=== PATIENT | female | born 1970 | race Asian ===

== ENCOUNTER → 2016-02-20 | Outpatient (CLI) | payer MEDICARE, OTHER ==
[2016-02-20 14:19] LABS: ALT 32 U/L (9-52); AST 23 U/L (14-36); Alkaline Phosphatase 112 U/L (38-126); Blood Urea Nitrogen 10 mg/dL (7-17); Non-African American GFR(MDRD) >60 (>60 ml/min/1.73 sqM)
== END | disposition home or self-care (01) ==
LOC: LABWHC1 13:07
PROVIDERS: ATTEND Pain Medicine Pain Medicine
DX: D64.9 Anemia, unspecified (principal); M06.9 Rheumatoid arthritis, unspecified; K71.6 Toxic liver disease with hepatitis, not elsewhere classified
CPT/HCPCS: 36415; 82565; 84075; 84450; 84460; 84520

== ENCOUNTER 2016-02-28 06:53 | Emergency (ER) | payer MEDICARE, OTHER ==
[2016-02-28] MEDS ORDERED: KETOROLAC 30 MG/ML 1 ML VIAL IVP STA (07:36)
[2016-02-28] MEDS ORDERED: SODIUM CHLORIDE 0.9% 1,000 ML IV STA ×2 (07:36)
[2016-02-28 07:37] VITALS: RESP 14
--- NOTE | 2016-02-28 07:39 | ED ---
Abdominal Pain HPI - General Chief Complaint: Abdominal Pain Stated Complaint: chest pain Time Seen by Provider: 02/28/16 07:14 Source: patient, family, RN notes reviewed Mode of arrival: wheelchair Limitations: no limitations - History of Present Illness Initial Comments: This is a 45-year-old female history of ulcerative colitis and irritable bowel syndrome as well as a history of previous C-sections who states she woke up around 2 AM this morning with severe sharp stabbing abdominal pain in the mid epigastrium radiating to the left side of her abdomen into the back. She states she did have 3 episodes nausea vomiting that she just complains of crampy pain. She did take her morphine prior to coming in which she is on daily dose. She states the pain went from a 11/1005-08/20. She does state that she's been under a lot of stress lately. She denies any diarrhea any dysuria hematuria. She does complain of a dry mouth. MD Complaint: abdominal pain - Related Data Home Medications Medication Instructions Recorded Confirmed Carisoprodol [Soma] 350 mg PO HS 04/18/14 02/28/16 Gabapentin [Neurontin] 600 mg PO BID 04/18/14 02/28/16 Morphine Sulfate ER [Ms Contin 15 mg PO Q12HR 04/18/14 02/28/16 15Mg] Morphine Sulfate [Morphine Sulfate 30 mg PO Q12HR 04/18/14 02/28/16 ER] DULoxetine HCL [Duloxetine HCl] 30 mg PO DAILY 02/28/16 02/28/16 Methylphenidate HCl 5 mg PO TID 02/28/16 02/28/16 PARoxetine HCL [PARoxetine HCL] 30 mg PO BID 02/28/16 02/28/16 clonazePAM [Clonazepam] 0.5 mg PO BID 02/28/16 02/28/16 oxyCODONE HCL [oxyCODONE HCL] 10 mg PO Q12H 02/28/16 02/28/16 Previous Rx's Medication Instructions Recorded Dicyclomine HCl [Bentyl] 20 mg PO QID #7 tab 02/28/16 Pantoprazole Sodium [Protonix] 20 mg PO DAILY #14 tablet. 02/28/16 Allergies Allergy/AdvReac Type Severity Reaction Status Date / Time amoxicillin Allergy Unknown Verified 04/18/14 11:51 cephalexin monohydrate Allergy Unknown Verified 04/18/14 11:51 [From Keflex] latex Allergy Unknown Verified 04/18/14 11:51 sulfamethoxazole Allergy Unknown Verified 04/18/14 11:51 [From Septra] trimethoprim [From Septra] Allergy Unknown Verified 04/18/14 11:51 Review of Systems ROS Statement: Those systems with pertinent positive or pertinent negative responses have been documented in the HPI. ROS Other: All systems not noted in ROS Statement are negative. Past Medical History Additional Past Medical History / Comment(s): rediculopathy, spinal cord compression injury, arthritis, compromised immune system History of Any Multi-Drug Resistant Organisms: None Reported Past Surgical History: Back Surgery Past Psychological History: Bipolar Smoking Status: Current every day smoker Past Alcohol Use History: None Reported Past Drug Use History: None Reported General Exam - General Exam Comments Initial Comments: This is a well-developed well-nourished awake alert oriented 3 female Limitations: no limitations General appearance: alert, anxious Head exam: Present: atraumatic, normocephalic, normal inspection Eye exam: Present: normal appearance, PERRL, EOMI. Absent: scleral icterus, conjunctival injection, periorbital swelling ENT exam: Present: mucous membranes dry Neck exam: Present: normal inspection. Absent: tenderness, meningismus, lymphadenopathy Respiratory exam: Present: normal lung sounds bilaterally. Absent: respiratory distress, wheezes, rales, rhonchi, stridor Cardiovascular Exam: Present: regular rate, normal rhythm, normal heart sounds. Absent: systolic murmur, diastolic murmur, rubs, gallop, clicks GI/Abdominal exam: Present: soft, tenderness (Epigastric tenderness with some left upper or lower tenderness some left-sided abdominal tenderness no definite guarding), normal bowel sounds. Absent: distended, guarding, rebound, rigid, mass, bruit, pulsatile mass, hernia Rectal exam: Present: deferred Extremities exam: Present: normal inspection, full ROM, normal capillary refill. Absent: tenderness, pedal edema, joint swelling, calf tenderness Back exam: Present: normal inspection Neurological exam: Present: alert, oriented X3, CN II-XII intact Psychiatric exam: Present: normal affect, normal mood Skin exam: Present: warm, dry, intact, normal color. Absent: rash Course Vital Signs 02/28/16 02/28/16 02/28/16 06:57 07:34 08:24 Temperature 98.2 F Pulse Rate 92 90 84 Respiratory 18 14 14 Rate Blood Pressure 139/84 141/90 130/85 O2 Sat by Pulse 96 95 94 L Oximetry 02/28/16 02/28/16 09:00 09:28 Temperature Pulse Rate 94 86 Respiratory 14 14 Rate Blood Pressure 138/84 130/80 O2 Sat by Pulse 97 96 Oximetry Medical Decision Making - Medical Decision Making The patient showing much improved this time she'll be discharged on appropriate medication the presentation is consistent with irritable bowel syndrome however gastritis or peptic ulcers not ruled out she has been on medication the past week placed on medication today. She is a follow-up with her doctor and return when necessary - Lab Data Result diagrams: 02/28/16 07:40 02/28/16 07:40 Lab Results 02/28/16 02/28/16 02/28/16 Range/Units 07:40 07:40 07:40 WBC 11.0 H (3.8-10.6) k/uL RBC 4.38 (3.80-5.40) m/uL Hgb 13.1 (11.4-16.0) gm/dL Hct 39.1 (34.0-46.0) % MCV 89.1 (80.0-100.0) fL MCH 29.9 (25.0-35.0) pg MCHC 33.6 (31.0-37.0) g/dL RDW 11.8 (11.5-15.5) % Plt Count 238 (150-450) k/uL Neutrophils % 87 % Lymphocytes % 8 % Monocytes % 3 % Eosinophils % 1 % Basophils % 0 % Neutrophils # 9.6 H (1.3-7.7) k/uL Lymphocytes # 0.9 L (1.0-4.8) k/uL Monocytes # 0.4 (0-1.0) k/uL Eosinophils # 0.1 (0-0.7) k/uL Basophils # 0.0 (0-0.2) k/uL Sodium 142 (137-145) mmol/L Potassium 5.1 (3.5-5.1) mmol/L Chloride 101 (98-107) mmol/L Carbon Dioxide 31 H (22-30) mmol/L Anion Gap 10 mmol/L BUN 8 (7-17) mg/dL Creatinine 0.76 (0.52-1.04) mg/dL Est GFR (MDRD) Af Amer >60 (>60 ml/min/1.73 sqM) Est GFR (MDRD) Non-Af >60 (>60 ml/min/1.73 sqM) Glucose 126 H (74-99) mg/dL Calcium 9.2 (8.4-10.2) mg/dL Total Bilirubin 0.5 (0.2-1.3) mg/dL AST 20 (14-36) U/L ALT 23 (9-52) U/L Alkaline Phosphatase 120 (38-126) U/L Total Creatine Kinase 114 (30-135) U/L CK-MB (CK-2) 0.9 (0.0-2.4) ng/mL CK-MB (CK-2) Rel Index 0.8 Troponin I <0.012 (0.000-0.034) ng/mL Total Protein 7.0 (6.3-8.2) g/dL Albumin 4.1 (3.5-5.0) g/dL Amylase 36 (30-110) U/L Lipase 55 (23-300) U/L Urine Color Urine Appearance (Clear) Urine pH (5.0-8.0) Ur Specific [place] (1.001-1.035) Urine Protein (Negative) Urine Glucose (UA) (Negative) Urine Ketones (Negative) Urine Blood (Negative) Urine Nitrate (Negative) Urine Bilirubin (Negative) Urine Urobilinogen (<2.0) mg/dL Ur Leukocyte Esterase (Negative) Urine HCG, Qual (Not Detectd) 02/28/16 02/28/16 Range/Units 09:00 09:00 WBC (3.8-10.6) k/uL RBC (3.80-5.40) m/uL Hgb (11.4-16.0) gm/dL Hct (34.0-46.0) % MCV (80.0-100.0) fL MCH (25.0-35.0) pg MCHC (31.0-37.0) g/dL RDW (11.5-15.5) % Plt Count (150-450) k/uL Neutrophils % % Lymphocytes % % Monocytes % % Eosinophils % % Basophils % % Neutrophils # (1.3-7.7) k/uL Lymphocytes # (1.0-4.8) k/uL Monocytes # (0-1.0) k/uL Eosinophils # (0-0.7) k/uL Basophils # (0-0.2) k/uL Sodium (137-145) mmol/L Potassium (3.5-5.1) mmol/L Chloride (98-107) mmol/L Carbon Dioxide (22-30) mmol/L Anion Gap mmol/L BUN (7-17) mg/dL Creatinine (0.52-1.04) mg/dL Est GFR (MDRD) Af Amer (>60 ml/min/1.73 sqM) Est GFR (MDRD) Non-Af (>60 ml/min/1.73 sqM) Glucose (74-99) mg/dL Calcium (8.4-10.2) mg/dL Total Bilirubin (0.2-1.3) mg/dL AST (14-36) U/L ALT (9-52) U/L Alkaline Phosphatase (38-126) U/L Total Creatine Kinase (30-135) U/L CK-MB (CK-2) (0.0-2.4) ng/mL CK-MB (CK-2) Rel Index Troponin I (0.000-0.034) ng/mL Total Protein (6.3-8.2) g/dL Albumin (3.5-5.0) g/dL Amylase (30-110) U/L Lipase (23-300) U/L Urine Color Light Yellow Urine Appearance Clear (Clear) Urine pH 6.5 (5.0-8.0) Ur Specific [place] 1.005 (1.001-1.035) Urine Protein Negative (Negative) Urine Glucose (UA) Negative (Negative) Urine Ketones Negative (Negative) Urine Blood Negative (Negative) Urine Nitrate Negative (Negative) Urine Bilirubin Negative (Negative) Urine Urobilinogen <2.0 (<2.0) mg/dL Ur Leukocyte Esterase Negative (Negative) Urine HCG, Qual Not Detected (Not Detectd) - EKG Data -: EKG Interpreted by Ms EKG shows normal: sinus rhythm (Sinus rhythm rate of 87. 01 20 QRS duration 72 QT/QTC of 370/454 nonspecific T-wave configuration no acute elevations or depressions.) - Radiology Data Radiology results: report reviewed (I did review the x-rays and reports no acute findings.), image reviewed Disposition Clinical Impression: Abdominal pain, Irritable bowel syndrome Disposition: HOME SELF-CARE Condition: Good Instructions: Abdominal Pain (ED), Irritable Bowel Syndrome (ED) Prescriptions: Dicyclomine HCl [Bentyl] 20 mg PO QID #7 tab Pantoprazole Sodium [Protonix] 20 mg PO DAILY #14 tablet.
[2016-02-28 07:49] LABS: Basophils % (A) 0 %; CH 30.1; CHCM 33.9; Eosinophils # (A) 0.1 k/uL (0-0.7); Eosinophils % (A) 1 %; HCT 39.1 % (34.0-46.0); HDW 2.45; HGB 13.1 gm/dL (11.4-16.0); Luc # (Auto) 0.07; Luc % (Auto) 1; Lymphocytes # (A) 0.9 k/uL (1.0-4.8); Lymphocytes % (A) 8 %; MCH 29.9 pg (25.0-35.0); MCHC 33.6 g/dL (31.0-37.0); MCV 89.1 fL (80.0-100.0); Mean Platelet Volume 6.2; Monocytes # (A) 0.4 k/uL (0-1.0); Monocytes % (A) 3 %; Neutrophils # (A) 9.6 k/uL (1.3-7.7); Neutrophils % (A) 87 %; RBC 4.38 m/uL (3.80-5.40); RDW 11.8 % (11.5-15.5); WBC (Perox) 11.29
[2016-02-28 08:01] LABS: ALT 23 U/L (9-52); AST 20 U/L (14-36); Alkaline Phosphatase 120 U/L (38-126); Amylase 36 U/L (30-110); Anion Gap 10 mmol/L; Blood Urea Nitrogen 8 mg/dL (7-17); Calcium 9.2 mg/dL (8.4-10.2); Carbon Dioxide 31 mmol/L (22-30); Chloride 101 mmol/L (98-107); Glucose 126 mg/dL (74-99); Non-African American GFR(MDRD) >60 (>60 ml/min/1.73 sqM); Potassium 5.1 mmol/L (3.5-5.1); Sodium 142 mmol/L (137-145); Total Bilirubin 0.5 mg/dL (0.2-1.3)
[2016-02-28 08:20] LABS: Creatine Kinase 114 U/L (30-135)
--- NOTE | 2016-02-28 08:27 | XR ---
2 view abdomen HISTORY: Upper abdominal pain 2 views of the abdomen on 3 images The lung bases are clear. There are overlying cardiac leads. There is a spinal curvature, degenerativ e disc changes in the visualized spine. There is no obstruction or pneumoperitoneum evident. IMPRESSION: Nonobstructive bowel gas pattern. Follow-up as indicated.
--- NOTE | 2016-02-28 08:28 | XR ---
EXAMINATION TYPE: XR chest 2V DATE OF EXAM: 02/28/2016 8:09 AM COMPARISON: Prior chest x-ray 19 December 2011 HISTORY: Lower chest pain TECHNIQUE: Frontal and lateral views of the chest are obtained. FINDINGS: There are overlying cardiac leads. Postop changes noted in the cervical spine. No pneumoni a, pneumothorax, or pleural effusion evident. Cardiomediastinal silhouette, pulmonary vascularity and bhavesh are stable. IMPRESSION: No acute cardiopulmonary process.
[2016-02-28 08:33] LABS: Creatine Kinase MB 0.9 ng/mL (0.0-2.4); Troponin I <0.012 ng/mL (0.000-0.034)
[2016-02-28 09:18] LABS: Appearance,Urine Clear (Clear); Bilirubin,Urine Negative (Negative); Glucose,Urine (UA) Negative (Negative); Ketones,Urine Negative (Negative); Leukocyte Esterase,Urine Negative (Negative); Nitrite,Urine Negative (Negative); PH, Urine 6.5 (5.0-8.0); Protein,Urine Negative (Negative); Specific Gravity,Urine 1.005 (1.001-1.035); UA Billing (MACRO vs. MICRO) CHEM; Urobilinogen,Urine <2.0 mg/dL (<2.0)
[2016-02-28 09:57] VITALS: BP 132/83; PULSE 87; TEMP 97.9
== END 2016-02-28 10:03 | disposition home or self-care (01) ==
LOC: EC 06:53
DX: K58.9 Irritable bowel syndrome, unspecified (principal); M54.10 Radiculopathy, site unspecified; F31.9 Bipolar disorder, unspecified; Z79.899 Other long term (current) drug therapy; Z79.891 Long term (current) use of opiate analgesic; Z88.0 Allergy status to penicillin; Z88.2 Allergy status to sulfonamides; Z88.1 Allergy status to other antibiotic agents; Z91.040 Latex allergy status; F17.200 Nicotine dependence, unspecified, uncomplicated; R68.2 Dry mouth, unspecified; Z87.828 Personal history of other (healed) physical injury and trauma
CPT/HCPCS: 96374; 36415; 93005; 80053; 82150; 82550; 82553; 83690; 84484; 85025; 81003; 81025; 71020; 74020; 99284; J1885

== ENCOUNTER 2016-12-27 14:54 | Emergency (ER) | payer MEDICARE ==
[2016-12-27] MEDS ORDERED: SODIUM CHLORIDE 0.9% 1,000 ML IV STA (16:09)
[2016-12-27] MEDS ORDERED: ONDANSETRON 4 MG/2 ML VIAL IVP STA (16:09)
--- NOTE | 2016-12-27 16:12 | ED ---
General Adult HPI - General Chief complaint: Nausea/Vomiting/Diarrhea Stated complaint: DEHYDRATION, WEIGHTLOSS, VOMITING Time Seen by Provider: 12/27/16 15:55 Source: patient, RN notes reviewed Mode of arrival: ambulatory Limitations: no limitations - History of Present Illness Initial comments: Patient's a 46-year-old female who presents emergency room today with a chief complaint of symptoms of nausea vomiting and diarrhea over the last month. Patient does admit that she believes some this is withdrawal symptoms. She states that she moved out to [place] when she was out there they took her off her morphine and oxycodone and placed her on Suboxone. She states when she moved back to month ago here to [facility] here on they would not prescribe Suboxone she's not had this medication normal. She also admits she is only been taking doses here and they're of her Klonopin. Admits that she was seen here in the emergency room and was given a short prescription of Reform that she's been trying to sell. She states she still having symptoms nausea vomiting diarrhea. Denies any signs of blood in the emesis or stool. She does admit that she's had weight loss over the last month. Approximate 14 pounds. Patient admits that she feels dehydrated. She denies any other complaints or symptoms. Patient denies any recent fever, chills, shortness of breath, chest pain, back pain, numbness or tingling, dysuria or hematuria, constipation, headaches or visual changes, or any other complaints. - Related Data Home Medications Medication Instructions Recorded Confirmed Morphine Sulfate [Morphine Sulfate 30 mg PO Q12HR PRN 04/18/14 12/27/16 ER] Methylphenidate HCl 5 mg PO TID 02/28/16 12/27/16 PARoxetine HCL [PARoxetine HCL] 30 mg PO DAILY 02/28/16 12/27/16 Buprenorphine HCl/Naloxone HCl 1 film SL BID 12/09/16 12/27/16 [Suboxone 8 mg-2 mg Sl Film] Gabapentin [Neurontin] 300 mg PO TID 12/09/16 12/27/16 Pantoprazole Sodium [Protonix] 40 mg PO DAILY 12/09/16 12/27/16 Zolpidem [Ambien] 10 mg PO HS PRN 12/09/16 12/27/16 cloNIDine HCL [Catapres] 0.1 mg PO TID 12/09/16 12/27/16 Previous Rx's Medication Instructions Recorded HYDROcodone/APAP 5-325MG [Reform 1 tab PO Q6HR PRN #12 tab 12/09/16 5-325] Baclofen 10 mg PO TID #15 tab 12/27/16 Ondansetron Odt [Zofran ODT] 4 mg PO Q8HR PRN #20 tab 12/27/16 cloNIDine HCL [Catapres] 0.1 mg PO BID #10 tab 12/27/16 Allergies Allergy/AdvReac Type Severity Reaction Status Date / Time amoxicillin Allergy Unknown Verified 12/27/16 16:04 cephalexin monohydrate Allergy Unknown Verified 12/27/16 16:04 [From Keflex] latex Allergy Unknown Verified 12/27/16 16:04 sulfamethoxazole Allergy Unknown Verified 12/27/16 16:04 [From Septra] trimethoprim [From Octra] Allergy Unknown Verified 12/27/16 16:04 Review of Systems ROS Statement: Those systems with pertinent positive or pertinent negative responses have been documented in the HPI. ROS Other: All systems not noted in ROS Statement are negative. Past Medical History Additional Past Medical History / Comment(s): rediculopathy, spinal cord compression injury, arthritis, compromised immune system,DDD History of Any Multi-Drug Resistant Organisms: None Reported Past Surgical History: Back Surgery, Section Past Psychological History: Bipolar Smoking Status: Current every day smoker Past Alcohol Use History: None Reported Past Drug Use History: Opiates, Prescription Drug Abuse General Exam - General Exam Comments Initial Comments: General: The patient is awake and alert, in no distress, and does not appear acutely ill. Eye: Pupils are equal, round and reactive to light, extra-ocular movements are intact. No nystagmus. There is normal conjunctiva bilaterally. No signs of icterus. Ears, nose, mouth and throat: There are moist mucous membranes and no oral lesions. Neck: The neck is supple, there is no tenderness or JVD. Cardiovascular: There is a regular rate and rhythm. No murmur, rub or gallop is appreciated. Respiratory: Lungs are clear to auscultation, respirations are non-labored, breath sounds are equal. No wheezes, stridor, rales, or rhonchi. Gastrointestinal: Soft, non-distended, non-tender abdomen without masses or organomegaly noted. There is no rebound or guarding present. No CVA tenderness. Bowel sounds are unremarkable. Musculoskeletal: Normal ROM, no tenderness. Strength 5/5. Sensation intact. Pulses equal bilaterally 2+. Neurological: A&O x 3. CN II-XII intact, There are no obvious motor or sensory deficits. Coordination appears grossly intact. Speech is normal. Skin: Skin is warm and dry and no rashes or lesions are noted. Psychiatric: Cooperative, appropriate mood & affect, normal judgment. Limitations: no limitations Course Vital Signs 12/27/16 15:03 Temperature 97.8 F Pulse Rate 94 Respiratory 18 Rate Blood Pressure 169/100 O2 Sat by Pulse 100 Oximetry Medical Decision Making - Medical Decision Making Patient reexamined at this time showing no signs of distress. Patient labs been reviewed unremarkable. She is resting comfortably. Feeling better here in the emergency room after medications. Will be discharged home with prescription for clonidine, Zofran, baclofen withdrawal. Advised follow-up the family doctor over the next 2 days return here to the emergency room if any symptoms increase worsen or for any other concerns. - Lab Data Result diagrams: 12/27/16 16:35 12/27/16 16:35 Lab Results 12/27/16 12/27/16 12/27/16 Range/Units 16:35 16:35 18:07 WBC 6.5 (3.8-10.6) k/uL RBC 4.41 (3.80-5.40) m/uL Hgb 13.1 (11.4-16.0) gm/dL Hct 39.8 (34.0-46.0) % MCV 90.2 (80.0-100.0) fL MCH 29.6 (25.0-35.0) pg MCHC 32.8 (31.0-37.0) g/dL RDW 13.1 (11.5-15.5) % Plt Count 278 (150-450) k/uL Neutrophils % 66 % Lymphocytes % 25 % Monocytes % 6 % Eosinophils % 1 % Basophils % 0 % Neutrophils # 4.3 (1.3-7.7) k/uL Lymphocytes # 1.6 (1.0-4.8) k/uL Monocytes # 0.4 (0-1.0) k/uL Eosinophils # 0.1 (0-0.7) k/uL Basophils # 0.0 (0-0.2) k/uL Sodium 142 (137-145) mmol/L Potassium 4.6 (3.5-5.1) mmol/L Chloride 106 (98-107) mmol/L Carbon Dioxide 28 (22-30) mmol/L Anion Gap 8 mmol/L BUN 15 (7-17) mg/dL Creatinine 0.70 (0.52-1.04) mg/dL Est GFR (MDRD) Af Amer >60 (>60 ml/min/1.73 sqM) Est GFR (MDRD) Non-Af >60 (>60 ml/min/1.73 sqM) Glucose 119 H (74-99) mg/dL Calcium 9.7 (8.4-10.2) mg/dL Total Bilirubin 0.6 (0.2-1.3) mg/dL AST 14 (14-36) U/L ALT 25 (9-52) U/L Alkaline Phosphatase 91 (38-126) U/L Total Protein 7.1 (6.3-8.2) g/dL Albumin 4.1 (3.5-5.0) g/dL Amylase 80 (30-110) U/L Lipase 303 H (23-300) U/L Urine Color Urine Appearance (Clear) Urine pH (5.0-8.0) Ur Specific [place] (1.001-1.035) Urine Protein (Negative) Urine Glucose (UA) (Negative) Urine Ketones (Negative) Urine Blood (Negative) Urine Nitrite (Negative) Urine Bilirubin (Negative) Urine Urobilinogen (<2.0) mg/dL Ur Leukocyte Esterase (Negative) Urine RBC (0-5) /hpf Urine WBC (0-5) /hpf Ur Squamous Epith Cells (0-4) /hpf Urine Mucus (None) /hpf Urine HCG, Qual Not Detected (Not Detectd) 12/27/16 Range/Units 18:07 WBC (3.8-10.6) k/uL RBC (3.80-5.40) m/uL Hgb (11.4-16.0) gm/dL Hct (34.0-46.0) % MCV (80.0-100.0) fL MCH (25.0-35.0) pg MCHC (31.0-37.0) g/dL RDW (11.5-15.5) % Plt Count (150-450) k/uL Neutrophils % % Lymphocytes % % Monocytes % % Eosinophils % % Basophils % % Neutrophils # (1.3-7.7) k/uL Lymphocytes # (1.0-4.8) k/uL Monocytes # (0-1.0) k/uL Eosinophils # (0-0.7) k/uL Basophils # (0-0.2) k/uL Sodium (137-145) mmol/L Potassium (3.5-5.1) mmol/L Chloride (98-107) mmol/L Carbon Dioxide (22-30) mmol/L Anion Gap mmol/L BUN (7-17) mg/dL Creatinine (0.52-1.04) mg/dL Est GFR (MDRD) Af Amer (>60 ml/min/1.73 sqM) Est GFR (MDRD) Non-Af (>60 ml/min/1.73 sqM) Glucose (74-99) mg/dL Calcium (8.4-10.2) mg/dL Total Bilirubin (0.2-1.3) mg/dL AST (14-36) U/L ALT (9-52) U/L Alkaline Phosphatase (38-126) U/L Total Protein (6.3-8.2) g/dL Albumin (3.5-5.0) g/dL Amylase (30-110) U/L Lipase (23-300) U/L Urine Color Yellow Urine Appearance Cloudy H (Clear) Urine pH 5.5 (5.0-8.0) Ur Specific [place] 1.021 (1.001-1.035) Urine Protein 1+ H (Negative) Urine Glucose (UA) Negative (Negative) Urine Ketones Negative (Negative) Urine Blood Small H (Negative) Urine Nitrite Negative (Negative) Urine Bilirubin Negative (Negative) Urine Urobilinogen 2.0 (<2.0) mg/dL Ur Leukocyte Esterase Small H (Negative) Urine RBC 3 (0-5) /hpf Urine WBC 5 (0-5) /hpf Ur Squamous Epith Cells 7 H (0-4) /hpf Urine Mucus Many H (None) /hpf Urine HCG, Qual (Not Detectd) Disposition Clinical Impression: Opiate withdrawal, Nausea vomiting and diarrhea Disposition: HOME SELF-CARE Condition: Good Instructions: Opioid Withdrawal (ED) Additional Instructions: Please use medication as discussed. Please follow-up with family doctor in the next 2 days. Please return to emergency room if the symptoms increase or worsen or for any other concerns. Prescriptions: Baclofen 10 mg PO TID #15 tab cloNIDine HCL [Catapres] 0.1 mg PO BID #10 tab Ondansetron Odt [Zofran ODT] 4 mg PO Q8HR PRN #20 tab PRN Reason: Nausea Referrals: Nina Jose MD [Primary Care Provider] - 1-2 days Time of Disposition: 18:35
[2016-12-27 16:53] LABS: Basophils % (A) 0 %; CH 29.5; CHCM 32.9; Eosinophils # (A) 0.1 k/uL (0-0.7); Eosinophils % (A) 1 %; HCT 39.8 % (34.0-46.0); HDW 2.24; HGB 13.1 gm/dL (11.4-16.0); Luc # (Auto) 0.09; Luc % (Auto) 1; Lymphocytes # (A) 1.6 k/uL (1.0-4.8); Lymphocytes % (A) 25 %; MCH 29.6 pg (25.0-35.0); MCHC 32.8 g/dL (31.0-37.0); MCV 90.2 fL (80.0-100.0); Mean Platelet Volume 6.9; Monocytes # (A) 0.4 k/uL (0-1.0); Monocytes % (A) 6 %; Neutrophils # (A) 4.3 k/uL (1.3-7.7); Neutrophils % (A) 66 %; RBC 4.41 m/uL (3.80-5.40); RDW 13.1 % (11.5-15.5); WBC 6.5 k/uL (3.8-10.6); WBC (Perox) 6.79
[2016-12-27 17:10] LABS: ALT 25 U/L (9-52); AST 14 U/L (14-36); Alkaline Phosphatase 91 U/L (38-126); Amylase 80 U/L (30-110); Anion Gap 8 mmol/L; Blood Urea Nitrogen 15 mg/dL (7-17); Calcium 9.7 mg/dL (8.4-10.2); Carbon Dioxide 28 mmol/L (22-30); Chloride 106 mmol/L (98-107); Glucose 119 mg/dL (74-99); Non-African American GFR(MDRD) >60 (>60 ml/min/1.73 sqM); Potassium 4.6 mmol/L (3.5-5.1); Sodium 142 mmol/L (137-145); Total Bilirubin 0.6 mg/dL (0.2-1.3); Total Protein 7.1 g/dL (6.3-8.2)
[2016-12-27] MEDS ORDERED: SODIUM CHLORIDE 0.9% 500 ML IV STA (17:57)
[2016-12-27 18:14] LABS: Appearance,Urine Cloudy (Clear); Bilirubin,Urine Negative (Negative); Glucose,Urine (UA) Negative (Negative); Ketones,Urine Negative (Negative); Leukocyte Esterase,Urine Small (Negative); Mucus,Urine Many /hpf; Nitrite,Urine Negative (Negative); PH, Urine 5.5 (5.0-8.0); Particle Count 25544; Protein,Urine 1+ (Negative); RBC,Urine 3 /hpf (0-5); Specific Gravity,Urine 1.021 (1.001-1.035); Squamous Epithelial Cell,Urine 7 /hpf (0-4); UA Billing (MACRO vs. MICRO) MICRO; WBC,Urine 5 /hpf (0-5)
[2016-12-27 18:54] VITALS: BP 150/96; PULSE 91; RESP 16; TEMP 97.9
== END 2016-12-27 18:54 | disposition home or self-care (01) ==
LOC: EC 14:54
DX: F11.23 Opioid dependence with withdrawal (principal); R11.2 Nausea with vomiting, unspecified; R19.7 Diarrhea, unspecified; M19.90 Unspecified osteoarthritis, unspecified site; F31.9 Bipolar disorder, unspecified; Z79.899 Other long term (current) drug therapy; Z88.0 Allergy status to penicillin; Z88.1 Allergy status to other antibiotic agents; Z88.8 Allergy status to other drugs, medicaments and biological substances; Z91.040 Latex allergy status
CPT/HCPCS: 36415; 80053; 82150; 83690; 85025; 81001; 81025; 99284; 96374; 96361; J2405

== ENCOUNTER → 2023-06-18 | Outpatient (CLI) | payer OTHER ==
--- NOTE | 2023-06-18 11:56 | XR ---
EXAM TYPE: LUMBAR SPINE X RAY SERIES COMPARISON: NONE HISTORY: Pain TECHNIQUE: 3 views are submitted. FINDINGS: Alignment is anatomic. The pedicles are intact. The transverse processes are intact. There is mult ilevel moderate to severe hypertrophic and degenerative changes. Vascular calcifications are noted. A nterior spurring. Facet arthropathy most pronounced L5-S1 with suspected foraminal encroachment. Post erior spondylosis\retrolisthesis L2-3 and L3-4. IMPRESSION: 1. Multilevel moderate to severe degenerative disc disease with facet arthropathy most pronounced at L5-S1. Suspect foraminal encroachment.
== END | disposition home or self-care (01) ==
LOC: RADXRMAIN 10:33
PROVIDERS: ATTEND Family Medicine
DX: M51.37 Other intervertebral disc degeneration, lumbosacral region (principal); M47.817 Spondylosis without myelopathy or radiculopathy, lumbosacral region
CPT/HCPCS: 72100